=== PATIENT | female | born 1950 | race Caucasian/White ===

== ENCOUNTER 2021-05-07 10:19 | Observation (INO) ==
[~2021-05-07 10:19] MED LIST: Buffered Lidocaine 1% SYRIN 1 ml INTRADERM ONE; NS 0.9% 1000 ml BAG 1,000 ML IV SCH
[2021-05-07] MEDS ORDERED: ceFAZolin 2 GM in NS PREMIX 2 GM/100 ML BAG IVPB ONE (10:52)
[2021-05-07] MEDS ORDERED: Ondansetron 4 mg VIAL 2 MG/ML 2 ml VIAL ONE (11:10)
[2021-05-07] MEDS ORDERED: Lidocaine 2% PF 5 ML VIAL ONE (11:10)
[2021-05-07 12:46] LABS: INR 1.04 (0.86-1.15)
[2021-05-07] MEDS ORDERED: Ropivacaine 5 MG/ML 20 ML VIAL 0.5% (100 MG) ONE (12:47)
[2021-05-07] MEDS ORDERED: fentaNYL 100 mcg/2 ml 50 MCG/ML VIAL ONE ×2 (12:57→17:38)
[2021-05-07] MEDS ORDERED: Dexamethasone IV 4 MG/ML VIAL 1 ml VIAL ONE ×2 (12:57→14:56)
[2021-05-07] MEDS ORDERED: ROPIVACAINE 5 MG/ML 30 ML BTL (0.5%) ONE (12:59)
[2021-05-07] MEDS ORDERED: Rocuronium 50 mg VIAL 10 mg/ml 5 ml VIAL (50 mg) ONE (13:04)
[2021-05-07] MEDS ORDERED: fentaNYL 250 mcg/5 ml 50 MCG/ML 5 ml VIAL (250 MCG) ONE (13:04)
[2021-05-07] MEDS ORDERED: Bupivacaine 0.5% 50 ML MDV VIAL ONE (13:13)
[2021-05-07] MEDS ORDERED: Morphine 2 MG/ML SYRINGE IV PRN (14:49)
[2021-05-07] MEDS ORDERED: Lactulose 30 ml UDC PO PRN (14:49)
[2021-05-07] MEDS ORDERED: diPHENhydraMINE 25 mg TAB PO PRN (14:49)
[2021-05-07] MEDS ORDERED: Magnesium Hydroxide LIQ 30 ML UDC PO PRN (14:49)
[2021-05-07] MEDS ORDERED: Ondansetron 4 mg VIAL 2 MG/ML 2 ml VIAL IV PRN ×2 (14:49→17:31)
[2021-05-07] MEDS ORDERED: diPHENhydraMINE IV 50 MG/ML 1 ml VIAL (BENADRYL) IV PRN (14:49)
[2021-05-07] MEDS ORDERED: Ondansetron ODT 4 mg TAB 4 MG TAB PO PRN (14:49)
[2021-05-07] MEDS ORDERED: Albuterol HFA INHALER 8 gm MDI INH PRN (14:59)
[2021-05-07] MEDS ORDERED: HYDROmorphone 1 MG/1 ML SYRINGE ONE ×2 (16:22→18:14)
[2021-05-07] MEDS ORDERED: Metoprolol Tartrate 5 mg VIAL 5 ml VIAL (1 mg/ml) ONE ×2 (17:30→18:07)
[2021-05-07] MEDS ORDERED: DiMENhydriNATE IV 50 mg/ml 1 ml VIAL IV PUSH PRN (17:31)
[2021-05-07] MEDS ORDERED: Naloxone 0.4 mg VIAL 0.4 mg/ml 1 ml VIAL IV PRN (17:31)
[2021-05-07] MEDS ORDERED: Acetaminophen IV 1 GM/100ML 100 ML IV ONE ×2 (17:31→17:48)
[2021-05-07] MEDS ORDERED: Metoprolol Tartrate 5 mg VIAL 5 ml VIAL (1 mg/ml) IV ONE (17:32)
[2021-05-07] MEDS: fentaNYL 100 mcg/2 ml 50 MCG/ML VIAL IV PRN ×4 (17:40→17:55)
[2021-05-07] MEDS: HYDROmorphone 1 MG/1 ML SYRINGE IV PRN ×5 (18:14→18:35)
[2021-05-07] MEDS: Lactated Ringers 1000 ml BAG 1,000 ML IV SCH ×2 (21:17→21:24)
[2021-05-07] MEDS: Clindamycin 600 MG/D5W BAG 600 MG/50 ML BAG IV SCH (23:36)
[2021-05-07] MEDS: Magnesium Hydroxide LIQ 30 ML UDC PO SCH (23:46)
[2021-05-08] MEDS: Clindamycin 600 MG/D5W BAG 600 MG/50 ML BAG IV SCH ×2 (05:30→13:43)
[2021-05-08 07:11] LABS: Hematocrit 43 % (35-47); Hemoglobin 14.7 g/dL (12.0-16.0); Mean Platelet Volume 9.5 fL (7.4-10.4); Platelet Count 228 10^3/uL (150-450)
[2021-05-08 07:24] LABS: Blood Urea Nitrogen 16 mg/dL (6-24); CO2 Carbon Dioxide 24 mmol/L (22-32); Calcium 8.7 mg/dL (8.6-10.3); Chloride 106 mmol/L (101-111); Glucose 173 mg/dL (70-100); Sodium 138 mmol/L (135-145)
[2021-05-08 07:56] LABS: Anion Gap 8 mmol/L (2-11)
[2021-05-08] MEDS: Magnesium Hydroxide LIQ 30 ML UDC PO SCH ×2 (09:13→21:00)
[2021-05-08] MEDS: Vitamin THERAPEUTIC TAB PO SCH (09:15)
[2021-05-08] MEDS: Isosorbide Mononit ER 30mg TAB PO SCH (09:35)
[2021-05-08] MEDS ORDERED: Lactated Ringers 1000 ml BAG 1,000 ML IV SCH (13:00)
[2021-05-08] MEDS ORDERED: Furosemide 40 mg/4 ml IV VIAL IV SLOW PU ONE (14:53)
[2021-05-09 06:28] LABS: Hematocrit 37 % (35-47); Hemoglobin 12.8 g/dL (12.0-16.0); Mean Platelet Volume 8.7 fL (7.4-10.4); Platelet Count 180 10^3/uL (150-450)
[2021-05-09] MEDS ORDERED: Furosemide 40 mg/4 ml IV VIAL IV SLOW PU ONE (08:00)
[2021-05-09] MEDS ORDERED: Flu vaccine *QUAD* 2021-22* 0.5 ML SYRINGE IM ONE (09:00)
[2021-05-09] MEDS: Magnesium Hydroxide LIQ 30 ML UDC PO SCH (09:36)
[2021-05-09] MEDS: Vitamin THERAPEUTIC TAB PO SCH (09:37)
[2021-05-09] MEDS: Isosorbide Mononit ER 30mg TAB PO SCH (09:37)
[2021-05-09 15:44] VITALS: BP 107/90
== END 2021-05-09 16:45 | disposition home or self-care (01) ==
LOC: INTOOBSV 10:19 → AA 10:19 → SSU 20:08
PROVIDERS: ADMIT Orthopaedic Surgery Adult Reconstructive Orthopaedic Surgery; ATTEND Orthopaedic Surgery Adult Reconstructive Orthopaedic Surgery

== ENCOUNTER 2021-05-09 23:22 | Inpatient (IN) ==
[2021-05-10] MEDS ORDERED: fentaNYL 100 mcg/2 ml 50 MCG/ML VIAL IV SLOW PU ONE (00:46)
[2021-05-10] MEDS ORDERED: Lidocaine 1% VIAL 10 MG/ML VIAL INJ ONE (01:23)
[2021-05-10] MEDS ORDERED: Propofol 10 MG/ML 20 ML BTL IV PUSH ONE (01:39)
[2021-05-10] MEDS ORDERED: Albuterol HFA INHALER 8 gm MDI INH PRN (03:10)
[2021-05-10 05:29] LABS: Rapid COVID-19 Molecular Undetected (Undetected)
[2021-05-10 08:28] LABS: ABS Lymphocytes 1.5 10^3/ul (1.0-4.8); ABS Monocytes 1.2 10^3/ul (0-0.8); Eosinophil % 0.1 %; Hematocrit 35 % (35-47); Lymphocyte % 17.6 %; Mean Corpuscular HGB Conc 34 g/dL (31-36); Mean Corpuscular Hemoglobin 31 pg (27-31); Mean Corpuscular Volume 90 fL (80-97); Mean Platelet Volume 8.7 fL (7.4-10.4); Platelet Count 183 10^3/uL (150-450); Red Blood Count 3.94 10^6 /uL (3.70-4.87); Red Cell Distribution Width 15 % (10-15); White Blood Count 8.8 10^3/uL (3.5-10.8)
[2021-05-10 08:39] LABS: Calcium 8.1 mg/dL (8.6-10.3); Potassium 4.2 mmol/L (3.5-5.0)
[2021-05-10] MEDS: Cholecalciferol (VIT D3) 400 units TAB PO SCH (10:00)
[2021-05-10] MEDS: Vitamin THERAPEUTIC TAB PO SCH (10:00)
[2021-05-10] MEDS: Isosorbide Mononit ER 30mg TAB PO SCH (10:01)
[2021-05-10] MEDS: Calcium (OSCAL) 500 mg TAB PO SCH (10:01)
[2021-05-10] MEDS: CMC:OMEGA-3 FATTY ACID 1000 mg(NF) PO SCH (10:01)
[2021-05-10] MEDS ORDERED: Senna TAB 8.6 mg TAB PO PRN (17:01)
[2021-05-11] MEDS: Vitamin THERAPEUTIC TAB PO SCH (09:49)
[2021-05-11] MEDS: Cholecalciferol (VIT D3) 400 units TAB PO SCH (09:50)
[2021-05-11] MEDS: Calcium (OSCAL) 500 mg TAB PO SCH (09:51)
[2021-05-11] MEDS: CMC:OMEGA-3 FATTY ACID 1000 mg(NF) PO SCH (09:51)
[2021-05-11] MEDS: Isosorbide Mononit ER 30mg TAB PO SCH (09:54)
[2021-05-12] MEDS: Cholecalciferol (VIT D3) 400 units TAB PO SCH (08:10)
[2021-05-12] MEDS: Vitamin THERAPEUTIC TAB PO SCH (08:11)
[2021-05-12] MEDS: CMC:OMEGA-3 FATTY ACID 1000 mg(NF) PO SCH (08:11)
[2021-05-12] MEDS: Calcium (OSCAL) 500 mg TAB PO SCH (08:11)
[2021-05-12] MEDS: Isosorbide Mononit ER 30mg TAB PO SCH (08:12)
[2021-05-13 06:11] LABS: Calcium 8.2 mg/dL (8.6-10.3); Potassium 4.1 mmol/L (3.5-5.0)
[2021-05-13] MEDS: CMC:OMEGA-3 FATTY ACID 1000 mg(NF) PO SCH (08:46)
[2021-05-13] MEDS: Calcium (OSCAL) 500 mg TAB PO SCH (08:46)
[2021-05-13] MEDS: Isosorbide Mononit ER 30mg TAB PO SCH (08:47)
[2021-05-13] MEDS: Cholecalciferol (VIT D3) 400 units TAB PO SCH (08:49)
[2021-05-13] MEDS: Vitamin THERAPEUTIC TAB PO SCH (08:49)
[2021-05-14 08:25] VITALS: BP 119/75
[2021-05-14] MEDS: Isosorbide Mononit ER 30mg TAB PO SCH (08:42)
[2021-05-14] MEDS: Cholecalciferol (VIT D3) 400 units TAB PO SCH (08:43)
[2021-05-14] MEDS: Vitamin THERAPEUTIC TAB PO SCH (08:45)
[2021-05-14] MEDS: Calcium (OSCAL) 500 mg TAB PO SCH (08:46)
[2021-05-14] MEDS: CMC:OMEGA-3 FATTY ACID 1000 mg(NF) PO SCH (08:46)
[2021-05-14 11:06] LABS: Rapid COVID-19 Molecular Undetected (Undetected)
== END 2021-05-14 11:20 | DRG 563 ==
LOC: ED 23:22 → SUATTDRO 05-10 02:59 → SSU 05-10 02:59
PROVIDERS: ADMIT Internal Medicine; ATTEND Orthopaedic Surgery Adult Reconstructive Orthopaedic Surgery

== ENCOUNTER 2021-08-25 10:02 | Inpatient (IN) ==
[2021-08-25 12:06] LABS: ABS Eosinophils 0.1 10^3/ul (0-0.6); ABS Lymphocytes 1.6 10^3/ul (1.0-4.8); ABS Monocytes 0.7 10^3/ul (0-0.8); ABS Neutrophils 4.7 10^3/ul (1.5-7.7); Hematocrit 44 % (35-47); Hemoglobin 14.8 g/dL (12.0-16.0); Lymphocyte % 22.2 %; Mean Corpuscular HGB Conc 34 g/dL (31-36); Mean Corpuscular Hemoglobin 29 pg (27-31); Mean Corpuscular Volume 87 fL (80-97); Mean Platelet Volume 7.8 fL (7.4-10.4); Platelet Count 316 10^3/uL (150-450); Red Blood Count 5.06 10^6 /uL (3.70-4.87); Red Cell Distribution Width 15 % (10-15)
[2021-08-25 12:13] LABS: INR 1.2 (0.86-1.15)
[2021-08-25 12:23] LABS: Albumin 3.6 g/dL (3.2-5.2); Albumin/Globulin Ratio 1.4 (1-3); Calcium 9.2 mg/dL (8.6-10.3); Globulin 2.6 g/dL (2-4); Magnesium 2.1 mg/dL (1.9-2.7); Potassium 4.2 mmol/L (3.5-5.0); Total Bilirubin 0.9 mg/dL (0.2-1.0); Total Protein 6.2 g/dL (6.4-8.9); eGFR CKD-EPI 97.9 (>60)
[2021-08-25 12:50] LABS: Urine Appearance Cloudy; Urine Bilirubin Negative (Negative); Urine Blood Negative (Negative); Urine Color Yellow; Urine Glucose Negative (Negative); Urine Ketones Negative (Negative); Urine Nitrite Negative (Negative); Urine Protein Negative (Negative); Urine Specific Gravity 1.012 (1.002-1.030); Urine Urobilinogen Negative (Negative)
[2021-08-25] MEDS ORDERED: Albuterol HFA INHALER 8 gm MDI INH PRN (13:29)
[2021-08-25] MEDS ORDERED: Gabapentin 600 mg TAB (NF) PO SCH (14:00)
[2021-08-25] MEDS: Enoxaparin 100 MG/ML SYR SUBCUT SCH (18:14)
[2021-08-25] MEDS: HYDROcodone/ACETAMIN 5/325 mg TAB PO SCH (20:16)
[2021-08-26 06:10] LABS: ABS Eosinophils 0.1 10^3/ul (0-0.6); ABS Monocytes 0.6 10^3/ul (0-0.8); ABS Neutrophils 3.4 10^3/ul (1.5-7.7); Eosinophil % 2.1 %; Hematocrit 45 % (35-47); Hemoglobin 15.3 g/dL (12.0-16.0); Mean Corpuscular HGB Conc 34 g/dL (31-36); Mean Corpuscular Hemoglobin 30 pg (27-31); Mean Corpuscular Volume 87 fL (80-97); Mean Platelet Volume 7.9 fL (7.4-10.4); Nucleated Red Blood Cells % 0.1; Platelet Count 300 10^3/uL (150-450); Red Blood Count 5.13 10^6 /uL (3.70-4.87); Red Cell Distribution Width 16 % (10-15); White Blood Count 6.1 10^3/uL (3.5-10.8)
[2021-08-26] MEDS: Enoxaparin 100 MG/ML SYR SUBCUT SCH ×2 (06:15→17:41)
[2021-08-26 06:26] LABS: Calcium 9.2 mg/dL (8.6-10.3); Potassium 4.3 mmol/L (3.5-5.0)
[2021-08-26] MEDS ORDERED: Perflutren Lipid Microsphere 3 ML VIAL ONE (08:40)
[2021-08-26] MEDS: Isosorbide Mononit ER 30mg TAB PO SCH (09:17)
[2021-08-26] MEDS: HYDROcodone/ACETAMIN 5/325 mg TAB PO SCH (22:17)
[2021-08-27] MEDS: Isosorbide Mononit ER 30mg TAB PO SCH (08:37)
[2021-08-27] MEDS ORDERED: ceFAZolin 2 GM PREMIX 2 GM/50 ML BAG ONE (14:26)
[2021-08-27] MEDS ORDERED: ceFAZolin 1 GM ADVAN 1 GM ADDV.VIAL IVPB ONE (14:26)
[2021-08-27] MEDS ORDERED: Propofol 10 MG/ML 20 ML BTL ONE (14:35)
[2021-08-27] MEDS ORDERED: Lidocaine 2% PF 5 ML VIAL ONE (14:35)
[2021-08-27] MEDS ORDERED: fentaNYL 250 mcg/5 ml 50 MCG/ML 5 ml VIAL (250 MCG) ONE (14:36)
[2021-08-27] MEDS ORDERED: Midazolam 2 mg/2 ml VIAL 1 mg/ml 2 ml VIAL (2 mg) ONE (15:00)
[2021-08-27] MEDS ORDERED: HYDROmorphone 1 MG/1 ML SYRINGE IV PRN (15:02)
[2021-08-27] MEDS ORDERED: DiMENhydriNATE IV 50 mg/ml 1 ml VIAL IV PUSH PRN (15:02)
[2021-08-27] MEDS ORDERED: Ondansetron 4 mg VIAL 2 MG/ML 2 ml VIAL IV PRN (15:02)
[2021-08-27] MEDS ORDERED: Acetaminophen IV 1 GM/100ML 100 ML IV PRN (15:02)
[2021-08-27] MEDS ORDERED: fentaNYL 100 mcg/2 ml 50 MCG/ML VIAL IV PRN (15:02)
[2021-08-27] MEDS ORDERED: Naloxone 0.4 mg VIAL 0.4 mg/ml 1 ml VIAL IV PRN (15:02)
[2021-08-27] MEDS ORDERED: diPHENhydraMINE IV 50 MG/ML 1 ml VIAL (BENADRYL) IV PRN (15:02)
[2021-08-27] MEDS ORDERED: ROPIVACAINE 5 MG/ML 30 ML BTL (0.5%) ONE (15:11)
[2021-08-27] MEDS ORDERED: Lidocaine 1% MPF 5 ML VIAL ONE (15:11)
[2021-08-27] MEDS ORDERED: Rocuronium 50 mg VIAL 10 mg/ml 5 ml VIAL (50 mg) ONE (15:18)
[2021-08-27] MEDS ORDERED: Ropivacaine 5 MG/ML 20 ML VIAL 0.5% (100 MG) ONE (16:18)
[2021-08-27] MEDS ORDERED: HYDROmorphone 0.5 MG/0.5 ML SYRINGE ONE ×3 (17:14→18:36)
[2021-08-27] MEDS ORDERED: Ondansetron 4 mg VIAL 2 MG/ML 2 ml VIAL ONE (17:32)
[2021-08-27] MEDS ORDERED: Dexamethasone IV 4 MG/ML VIAL 1 ml VIAL ONE (17:32)
[2021-08-27] MEDS ORDERED: Sugammadex 500 MG/5 ML 5 ml VIAL IV PUSH ONE (17:44)
[2021-08-27] MEDS ORDERED: Metoprolol Tartrate 5 mg VIAL 5 ml VIAL (1 mg/ml) ONE (18:04)
[2021-08-27] MEDS ORDERED: Acetaminophen IV 1 GM/100ML 100 ML IV ONE (18:04)
[2021-08-27] MEDS: HYDROcodone/ACETAMIN 5/325 mg TAB PO SCH (22:34)
[2021-08-28] MEDS: ceFAZolin 1 GM in Dextrose 1 GM/50 ML BAG IVPB SCH ×3 (00:37→16:50)
[2021-08-28 05:58] LABS: ABS Lymphocytes 1.2 10^3/ul (1.0-4.8); ABS Monocytes 0.5 10^3/ul (0-0.8); ABS Neutrophils 6.1 10^3/ul (1.5-7.7); Hematocrit 42 % (35-47); Mean Corpuscular HGB Conc 34 g/dL (31-36); Mean Corpuscular Hemoglobin 30 pg (27-31); Mean Corpuscular Volume 88 fL (80-97); Mean Platelet Volume 7.7 fL (7.4-10.4); Platelet Count 288 10^3/uL (150-450); Red Blood Count 4.76 10^6 /uL (3.70-4.87); Red Cell Distribution Width 16 % (10-15); White Blood Count 7.8 10^3/uL (3.5-10.8)
[2021-08-28 06:34] LABS: Calcium 8.9 mg/dL (8.6-10.3); Magnesium 2.2 mg/dL (1.9-2.7)
[2021-08-28 06:39] LABS: eGFR CKD-EPI 99.2 (>60)
[2021-08-28 06:50] LABS: Potassium 5.1 mmol/L (3.5-5.0)
[2021-08-28] MEDS: Isosorbide Mononit ER 30mg TAB PO SCH (09:01)
[2021-08-28] MEDS: HYDROcodone/ACETAMIN 5/325 mg TAB PO SCH (20:44)
[2021-08-29 05:45] LABS: ABS Eosinophils 0.1 10^3/ul (0-0.6); ABS Lymphocytes 2.2 10^3/ul (1.0-4.8); ABS Monocytes 1.1 10^3/ul (0-0.8); ABS Neutrophils 4.8 10^3/ul (1.5-7.7); Eosinophil % 0.9 %; Hematocrit 39 % (35-47); Hemoglobin 13.2 g/dL (12.0-16.0); Lymphocyte % 26.9 %; Mean Corpuscular HGB Conc 34 g/dL (31-36); Mean Corpuscular Hemoglobin 30 pg (27-31); Mean Corpuscular Volume 88 fL (80-97); Mean Platelet Volume 8.2 fL (7.4-10.4); Platelet Count 256 10^3/uL (150-450); Red Blood Count 4.46 10^6 /uL (3.70-4.87); Red Cell Distribution Width 16 % (10-15); White Blood Count 8.3 10^3/uL (3.5-10.8)
[2021-08-29 06:18] LABS: Calcium 8.6 mg/dL (8.6-10.3); Magnesium 2.1 mg/dL (1.9-2.7); Potassium 4.7 mmol/L (3.5-5.0); eGFR CKD-EPI 98.7 (>60)
[2021-08-29] MEDS ORDERED: Magnesium Hydroxide LIQ 30 ML UDC PO PRN (08:57)
[2021-08-29] MEDS ORDERED: Senna TAB 8.6 mg TAB PO PRN (08:57)
[2021-08-29] MEDS ORDERED: Polyethylene Glycol 3350 17 GM PACKET PO PRN (08:57)
[2021-08-29] MEDS: Isosorbide Mononit ER 30mg TAB PO SCH (09:23)
[2021-08-29 10:02] LABS: Rapid COVID-19 Molecular Undetected (Undetected)
[2021-08-29 11:19] VITALS: BP 110/69
== END 2021-08-29 11:40 | DRG 501 ==
LOC: ED 10:02 → SUATTDRO 12:21 → EDHOLD 12:21 → SSU 14:51
PROVIDERS: ADMIT Internal Medicine; ATTEND Internal Medicine